=== PATIENT | male | born 1995 | race Caucasian/White ===

== ENCOUNTER 2019-06-28 09:25 | Emergency (ER) | payer SELFPAY ==
--- NOTE | 2019-06-28 09:44 | EDM.PDOC ---
ED HPI GENERAL MEDICAL PROBLEM - General Chief Complaint: General Stated Complaint: FLU LIKE SYMPTOMS Time Seen by Provider: 06/28/19 09:32 Source of Information: Reports: Patient History Limitations: Reports: No Limitations - History of Present Illness INITIAL COMMENTS - FREE TEXT/NARRATIVE: Presents reporting he vomited once at 5 AM and maybe has some body aches. He drank some apple cider after he vomited and kept it down. No fever, ear or facial fullness, sore throat, cough, chest pain, abdominal pain, diarrhea or dysuria. He states his made him come in because they have young twins at home and she didn't "want them sick". "And while I am here I wanted you to check my hands that of been hurting for a while and my back pain". The patient must make an appointment in the clinic for his chronic health problems. Bilateral Back Pain Score (Numeric/FACES): 3 - Related Data Allergies Allergy/AdvReac Type Severity Reaction Status Date / Time No Known Allergies Allergy Verified 06/28/19 09:34 Home Meds: Home Meds . [No Known Home Meds] 06/28/19 [History] ED ROS GENERAL - Review of Systems Review Of Systems: Comprehensive ROS is negative, except as noted in HPI. ED EXAM, GENERAL - Physical Exam Exam: See Below Exam Limited By: No Limitations General Appearance: Alert, No Apparent Distress Ears: Normal External Exam, Normal TMs Nose: Normal Inspection Throat/Mouth: Normal Inspection Head: Atraumatic, Normocephalic Neck: Normal Inspection Respiratory/Chest: No Respiratory Distress, Lungs Clear, Normal Breath Sounds Cardiovascular: Normal Peripheral Pulses, Regular Rate, Rhythm GI/Abdominal: Normal Bowel Sounds, Soft, Non-Tender, No Distention Extremities: Normal Inspection Neurological: Alert, Oriented Psychiatric: Normal Affect, Normal Mood Skin Exam: Warm, Dry, Intact, Normal Color, No Rash Lymphatic: No Adenopathy Course - Vital Signs Last Recorded V/S: Last Vital Signs Temp 36.2 C 06/28/19 09:35 Pulse 101 H 06/28/19 09:35 Resp 17 06/28/19 09:35 BP 101/60 06/28/19 09:35 Pulse Ox 98 06/28/19 09:35 - Orders/Labs/Meds Orders: Active Orders 24 hr Category Date Time Status Sodium Chloride 0.9% [Normal Saline] 1,000 ml Med 06/28/19 09:55 Ordered IV STAT Medication Orders Sodium Chloride (Normal Saline) 1,000 mls @ 999 mls/hr IV STAT ONE Stop: 06/28/19 10:55 Meds: Medications Generic Name Dose Route Start Last Admin Trade Name Freq PRN Reason Stop Dose Admin Sodium Chloride 1,000 mls @ 999 mls/hr 06/28/19 09:55 Normal Saline IV 06/28/19 10:55 STAT ONE Discontinued Medications Generic Name Dose Route Start Last Admin Trade Name Freq PRN Reason Stop Dose Admin Ondansetron HCl 4 mg 06/28/19 09:55 Zofran IVPUSH 06/28/19 09:56 ONETIME ONE - Re-Assessments/Exams Free Text/Narrative Re-Assessment/Exam: 06/28/19 09:56 I had him drink a glass of water and he said he felt like throwing up but he did not vomit. Departure - Departure Time of Disposition: 09:44 Disposition: Home, Self-Care 01 Condition: Good Clinical Impression: Vomiting alone - Discharge Information Referrals: PCP,None [Primary Care Provider] - [facility] [Outside] [facility] [Outside] Forms: ED Department Discharge Additional Instructions: The following information is given to patients seen in the emergency department who are being discharged to home. This information is to outline your options for follow-up care. We provide all patients seen in our emergency department with a follow-up referral. The need for follow-up, as well as the timing and circumstances, are variable depending upon the specifics of your emergency department visit. If you don't have a primary care physician on staff, we will provide you with a referral. We always advise you to contact your personal physician following an emergency department visit to inform them of the circumstance of the visit and for follow-up with them and/or the need for any referrals to a consulting specialist. The emergency department will also refer you to a specialist when appropriate. This referral assures that you have the opportunity for follow-up care with a specialist. All of these measure are taken in an effort to provide you with optimal care, which includes your follow-up. Under all circumstances we always encourage you to contact your private physician who remains a resource for coordinating your care. When calling for follow-up care, please make the office aware that this follow-up is from your recent emergency room visit. If for any reason you are refused follow-up, please contact the [facility] Emergency Department at and asked to speak to the emergency department charge nurse. 1. Clear liquid diet, advance to BRAT (banana rice applesauce toast) diet. 2. Return promptly for vomiting and not keeping down oral fluids, abdominal pain, nor worsening symptoms. 3. Would handwashing at home - My Orders Last 24 Hours: My Active Orders 06/28/19 09:55 Sodium Chloride 0.9% [Normal Saline] 1,000 ml IV STAT - Assessment/Plan Last 24 Hours: My Active Orders 06/28/19 09:55 Sodium Chloride 0.9% [Normal Saline] 1,000 ml IV STAT
[2019-06-28] MEDS ORDERED: Ondansetron 4 MG/2 ML SDV IVPUSH ONE (09:55)
[2019-06-28] MEDS ORDERED: Sodium Chloride 0.9% 1,000 ML IV ONE (09:55)
== END 2019-06-28 11:10 | disposition home or self-care (01) ==
LOC: MW.ED 09:25
DX: R11.11 Vomiting without nausea (principal)
CPT/HCPCS: 96374; 99283; J2405; J7040

== ENCOUNTER 2023-03-21 11:29 | Emergency (ER) | payer SELFPAY ==
[2023-03-21] MEDS ORDERED: Diphtheria,Pertussis(Acell),Tetanus Vaccine 0.5 ML Syringe IM ONE (12:07)
[2023-03-21] MEDS ORDERED: Bacitracin Oint 1 GM U/D Packet TOP ONE (12:12)
== END 2023-03-21 12:38 | disposition home or self-care (01) ==
LOC: MW.ED 11:29
DX: S06.0X0A Concussion without loss of consciousness, initial encounter (principal); S01.01XA Laceration without foreign body of scalp, initial encounter; L03.811 Cellulitis of head [any part, except face]; Z23 Encounter for immunization; W22.09XA Striking against other stationary object, initial encounter; Y99.0 Civilian activity done for income or pay
CPT/HCPCS: 90471; 90715; 99282-25; 99283

== ENCOUNTER 2023-04-21 19:10 | Emergency (ER) | payer SELFPAY | END 2023-04-21 21:33 | disposition home or self-care (01) | LOC: MW.ED 19:10 | DX: M54.50 Low back pain, unspecified (principal) | CPT/HCPCS: 72100; 72100-26; 99283 ==

== ENCOUNTER 2023-08-24 05:02 | Emergency (ER) | payer SELFPAY ==
[2023-08-24] MEDS ORDERED: Lidocaine 1% 5 ML VIAL INJECT ONE (05:17)
[2023-08-24] MEDS ORDERED: Bupivacaine 0.5% 10 ML SDV INJECT ONE (05:17)
[2023-08-24] MEDS ORDERED: Ondansetron 4 MG Tab.DIS PO ONE (05:26)
[2023-08-24] MEDS ORDERED: oxyCODONE 5 MG Tab PO ONE (05:26)
[2023-08-24 05:48] LABS: BASE EXCESS VENOUS 2.1 (-2.0-3.0); PH,VENOUS 7.38 (7.31-7.41)
[2023-08-24 05:54] LABS: BASOPHILS ABSOLUTE AUTO 0.04 K/uL (0.00-0.20); BASOPHILS PERCENT AUTO 0.6 % (0.0-1.0); EOSINOPHILS ABSOLUTE AUTO 0.33 K/uL (0.00-0.45); EOSINOPHILS PERCENT AUTO 4.9 % (0.0-6.0); HEMATOCRIT 43.6 % (42.0-52.0); HEMOGLOBIN 14.8 g/dL (14.0-18.0); IMMATURE GRAN ABSOLUTE AUTO 0.02 K/uL (0.00-0.05); IMMATURE GRAN PERCENT AUTO 0.3 % (0.0-0.4); LYMPHOCYTES ABSOLUTE AUTO 1.95 K/uL (1.00-4.80); LYMPHOCYTES PERCENT AUTO 29.1 % (24.0-44.0); MEAN CORPUSCULAR HGB CONC 33.9 g/dL (32.0-36.0); MEAN CORPUSCULAR VOLUME 91.4 fL (83.0-99.0); MEAN PLATELET VOLUME 10.1 fL (9.4-12.4); MONOCYTES ABSOLUTE AUTO 0.47 K/uL (0.00-0.80); NEUTROPHILS ABSOLUTE AUTO 3.89 K/uL (1.80-7.70); NEUTROPHILS PERCENT AUTO 58.1 % (41.0-71.0); PLATELET COUNT,PLT 254 K/uL (150-400); RED BLOOD CELL COUNT 4.77 M/uL (4.52-5.90)
[2023-08-24 06:04] LABS: INR 1.08 (0.86-1.11); PTT,PARTIAL THROMBOPLSTIN TIME 29.1 SEC (23.9-30.7)
[2023-08-24 06:22] LABS: A/G RATIO 1.3 (0.9-1.6); ACETAMINOPHEN 3.7 ug/mL; ALANINE AMINOTRANSFERASE,ALT 11 IU/L (14-63); ALBUMIN 4.2 g/dL (3.4-5.0); ALKALINE PHOSPHATASE 69 U/L (46-116); ASPARTATE AMNIOTRANSFERASE,AST 11 IU/L (15-37); BILIRUBIN TOTAL 0.6 mg/dL (0.2-1.0); BLOOD UREA NITROGEN,BUN 9 mg/dL (7.0-18.0); CALCIUM 9.2 mg/dL (8.5-10.1); CARBON DIOXIDE,CO2 26.7 mmol/L (21.0-32.0); CHLORIDE,CL 101 mmol/L (98-107); CREATININE 0.7 mg/dL (0.8-1.3); EST CRCL DRUG DOSING (CG) 169.37 mL/min; GLUCOSE RANDOM 99 mg/dL (74-106); POTASSIUM,K 3.5 mmol/L (3.5-5.1); PROTEIN TOTAL,TP 7.5 g/dL (6.4-8.2); SALICYLATE 1.6 mg/dL (0.0-20.0); SODIUM,NA 137 mmol/L (136-148)
[2023-08-24 06:25] LABS: LACTIC ACID 1.1 mmol/L (0.4-2.0)
[2023-08-24 06:31] LABS: ESTIMATED GFR 127 mL/min (>60); ETHANOL BLOOD MEDICAL < 3.0 mg/dL
== END 2023-08-24 09:07 | disposition home or self-care (01) ==
LOC: MW.ED 05:02
DX: T39.1X1A Poisoning by 4-Aminophenol derivatives, accidental (unintentional), initial encounter (principal); K02.9 Dental caries, unspecified
CPT/HCPCS: 36415; 64400; 80053; 80143; 80179; 80307; 82803; 83605; 85025; 85610; 85730; 99283; A9270; J0665; J3490

== ENCOUNTER 2023-11-11 09:49 | Emergency (ER) | payer SELFPAY ==
[2023-11-11] MEDS: Tetracaine HCl/PF 0.5% 4 ML Bottle EYEBOTH STA (10:30)
== END 2023-11-11 11:10 | disposition home or self-care (01) ==
LOC: MW.ED 09:49
DX: S05.92XA Unspecified injury of left eye and orbit, initial encounter (principal); S05.91XA Unspecified injury of right eye and orbit, initial encounter; F17.210 Nicotine dependence, cigarettes, uncomplicated; Z75.8 Other problems related to medical facilities and other health care; X50.1XXA Overexertion from prolonged static or awkward postures, initial encounter
CPT/HCPCS: 99283; J3490

== ENCOUNTER 2023-11-25 18:41 | Emergency (ER) | payer SELFPAY | END 2023-11-25 19:37 | disposition left against medical advice (07) | LOC: MW.ED 18:41 | DX: Z53.21 Procedure and treatment not carried out due to patient leaving prior to being seen by health care provider (principal) ==

== ENCOUNTER 2023-11-26 08:06 | Emergency (ER) | payer SELFPAY | END 2023-11-26 08:33 | disposition home or self-care (01) | LOC: MW.ED 08:06 | DX: K04.7 Periapical abscess without sinus (principal); F17.210 Nicotine dependence, cigarettes, uncomplicated; Z79.899 Other long term (current) drug therapy; Z86.19 Personal history of other infectious and parasitic diseases; Z75.8 Other problems related to medical facilities and other health care | CPT/HCPCS: 99282; 99283 ==